=== PATIENT | female | born 1970 | race Caucasian/White ===

== ENCOUNTER 2022-09-17 09:46 | Emergency (ER) | payer MEDICAID ==
[~2022-09-17] VITALS: Ht 160 cm; Wt 107.5 kg
[2022-09-17 09:49] VITALS: BP_SYST 157
[2022-09-17] MEDS ORDERED: MED4 PO (09:56)
[2022-09-17] MEDS ORDERED: BENZ100C92 PO (09:56)
[2022-09-17 10:10] VITALS: BP_SYST 156
== END 2022-09-17 10:07 | disposition home or self-care (01) ==
LOC: SED 09:46
DX: J45.909 Unspecified asthma, uncomplicated (principal); R05.9 Cough, unspecified; R09.81 Nasal congestion; I10 Essential (primary) hypertension; Z79.899 Other long term (current) drug therapy
CPT/HCPCS: 71045; 99283

== ENCOUNTER 2022-10-16 16:32 | Inpatient (IN) | payer MEDICAID ==
[~2022-10-16] VITALS: Ht 160 cm; Wt 108.0 kg
[~2022-10-16 16:32] MED LIST: BENZ100C92 PO; MED4 PO
[2022-10-16 16:34] VITALS: BP_SYST 128
[2022-10-16 17:53] LABS: BASOPHILS # (AUTO) 0.1 K/uL (0.0-0.2); BASOPHILS % (AUTO) 0.7 % (0.0-2.0); EOSINOPHILS # (AUTO) 0.2 K/uL (0.0-0.4); EOSINOPHILS % (AUTO) 1.7 % (0.0-4.0); HEMATOCRIT 41.1 % (36-48); LYMPHOCYTES # (AUTO) 1.7 K/uL (1.0-5.5); LYMPHOCYTES % (AUTO) 16.5 % (20.5-51.5); MEAN CORPUSCULAR HEMOGLOBIN 31 pg (27-31); MEAN CORPUSCULAR HGB CONC 34 % (32-36); MEAN CORPUSCULAR VOLUME 92 fL (79.0-98.0); MONOCYTES # (AUTO) 0.6 K/uL (0.0-1.0); MONOCYTES % (AUTO) 5.9 % (1.7-9.3); NEUTROPHILS # (AUTO) 7.8 K/uL (1.8-7.7); NEUTROPHILS % (AUTO) 75.2 % (40.0-70.0); PLATELET COUNT (AUTO) 314 K/uL (130-430); RED BLOOD CELL COUNT(AUTO) 4.45 MIL/uL (4.2-6.2); RED CELL DISTRIBUTION WIDTH 13.4 % (9.0-15.0); WHITE BLOOD COUNT (AUTO) 10.4 K/uL (4.8-10.8)
[2022-10-16 18:10] LABS: ALANINE AMINOTRANSFERASE 44 U/L (12-78); ALBUMIN 3.6 g/dL (3.4-4.8); ANION GAP 11 (5-15); ASPARTATE AMINOTRANSFERASE 19 U/L (10-37); CALCIUM 9.1 mg/dL (8.4-11.0); CHLORIDE 100 mmol/L (98-107); CREATININE 0.85 mg/dL (0.55-1.30); GFR AFRICAN AMERICAN 90 mL/min (>90); GLUCOSE 125 mg/dL (70-99); TOTAL BILIRUBIN 0.2 mg/dL (0.0-1.0); UREA NITROGEN, BLOOD 20 mg/dL (8-21)
[2022-10-16] MEDS ORDERED: NITROGLYCERIN 1 INCH (GM) OINT. ONE (18:44)
[2022-10-16] MEDS ORDERED: MORPHINE 4 MG INJ. 4 MG/ML VIAL ONE (18:45)
[2022-10-16] MEDS ORDERED: MORPHINE 4 MG INJ. 4 MG/ML VIAL IVP ONE ×2 (20:15→23:30)
[2022-10-16] MEDS ORDERED: GABAPENTIN (21:28)
[2022-10-16] MEDS ORDERED: TRAM50TA2 PO (21:28)
[2022-10-16] MEDS ORDERED: VENL150C53 PO (21:28)
[2022-10-16] MEDS ORDERED: METF-381 PO (21:28)
[2022-10-16] MEDS ORDERED: ATOR40TA68 PO (21:28)
[2022-10-16] MEDS ORDERED: LOSA1TAB43 PO (21:28)
[2022-10-16] MEDS ORDERED: ANASTROZOLE (21:28)
[2022-10-16] MEDS ORDERED: HYDR-500 PO (21:28)
[2022-10-16] MEDS ORDERED: NITROGLYCERIN 1 INCH (GM) OINT. TP ONE (23:30)
[2022-10-17 02:11] LABS: BILIRUBIN,URINE NEGATIVE (NEGATIVE); BLOOD, URINE NEGATIVE (NEGATIVE); CLARITY/URINE CLEAR (CLEAR); COLOR,URINE YELLOW (YELLOW); GLUCOSE,URINE NEGATIVE (NEGATIVE); KETONES,URINE NEGATIVE (NEGATIVE); LEUKOCYTE ESTERASE ,URINE NEGATIVE (NEGATIVE); NITRITE, URINE NEGATIVE (NEGATIVE); PH,URINE 5.5 (5.0-8.0); PROTEIN URINE NEGATIVE (NEGATIVE); UROBILINOGEN,URINE 0.2 (0.2-1.0)
[2022-10-17] MEDS ORDERED: POTASSIUM CHLORIDE 20 MEQ TAB.PRT.SR PO ONE (02:15)
[2022-10-17] MEDS ORDERED: INSULIN REGULAR, HUMAN 100 UNITS/ML, 3 ML VIAL (humuLIN R) SUBCUT PRN (02:15)
[2022-10-17] MEDS ORDERED: POTASSIUM CHLORIDE 20 MEQ TAB.PRT.SR ONE (02:28)
[2022-10-17] MEDS: MORPHINE 2 MG/ML INJ. SYRINGE IVP PRN ×2 (02:34→07:02)
[2022-10-17 02:48] VITALS: BP_SYST 103
[2022-10-17 07:58] VITALS: BP_SYST 119
[2022-10-17 08:59] LABS: BASOPHILS % (AUTO) 0.6 % (0.0-2.0); EOSINOPHILS # (AUTO) 0.2 K/uL (0.0-0.4); EOSINOPHILS % (AUTO) 3.2 % (0.0-4.0); HEMOGLOBIN 12.5 g/dL (12.0-16.0); LYMPHOCYTES # (AUTO) 1.9 K/uL (1.0-5.5); LYMPHOCYTES % (AUTO) 28.8 % (20.5-51.5); MEAN CORPUSCULAR HEMOGLOBIN 31 pg (27-31); MEAN CORPUSCULAR HGB CONC 34 % (32-36); MEAN CORPUSCULAR VOLUME 92 fL (79.0-98.0); MONOCYTES # (AUTO) 0.4 K/uL (0.0-1.0); MONOCYTES % (AUTO) 6.5 % (1.7-9.3); NEUTROPHILS % (AUTO) 60.9 % (40.0-70.0); PLATELET COUNT (AUTO) 246 K/uL (130-430); RED BLOOD CELL COUNT(AUTO) 4.01 MIL/uL (4.2-6.2); RED CELL DISTRIBUTION WIDTH 13.3 % (9.0-15.0); WHITE BLOOD COUNT (AUTO) 6.6 K/uL (4.8-10.8)
[2022-10-17] MEDS: PANTOPRAZOLE SODIUM 40 MG/VIAL (PROTONIX) IVP SCH ×2 (09:03→21:48)
[2022-10-17 09:06] LABS: CALCIUM 8.6 mg/dL (8.4-11.0); CREATININE 0.83 mg/dL (0.55-1.30)
[2022-10-17 09:13] LABS: TOTAL BILIRUBIN 0.5 mg/dL (0.0-1.0)
[2022-10-17 11:20] VITALS: BP_SYST 111
[2022-10-17] MEDS: KCL 20 mEq in D5/0.45NS 1000mL 1,000 ML IV SCH (11:46)
[2022-10-17] MEDS ORDERED: NALOXONE HCL 0.4 MG/ML AMP (NARCAN) IVP PRN (12:30)
[2022-10-17] MEDS: HYDROmorphone 1 MG/ML INJ. CARTRIDGE IVP PRN ×3 (12:44→22:55)
[2022-10-17] MEDS ORDERED: METOPROLOL SUCCINATE 25 MG TAB.SR.24H (TOPROL XL) PO ONE (13:45)
[2022-10-17 15:00] VITALS: BP_SYST 120
[2022-10-17] MEDS ORDERED: GOLYTELY / COLYTE SOLUTION 4 LITERS PO ONE (18:00)
[2022-10-17 20:12] VITALS: BP_SYST 125
[2022-10-17 20:14] VITALS: BP_SYST 125
[2022-10-17] MEDS ORDERED: ATORVASTATIN 20 MG TABLET PO ONE (22:00)
[2022-10-17] MEDS ORDERED: ANASTROZOLE 1 MG TABLET (ARIMIDEX) PO SCH (22:00)
[2022-10-17] MEDS: TEMAZEPAM 7.5 MG CAPSULE PO PRN (22:54)
[2022-10-18] MEDS ORDERED: ONDANSETRON HCL 4 MG/2 ML VIAL IM PRN (01:00)
[2022-10-18 01:02] VITALS: BP_SYST 142; BP_SYST 93
[2022-10-18 03:58] LABS: BASOPHILS % (AUTO) 0.5 % (0.0-2.0); EOSINOPHILS # (AUTO) 0.1 K/uL (0.0-0.4); EOSINOPHILS % (AUTO) 2.3 % (0.0-4.0); HEMATOCRIT 37.5 % (36-48); HEMOGLOBIN 12.7 g/dL (12.0-16.0); LYMPHOCYTES # (AUTO) 1.8 K/uL (1.0-5.5); LYMPHOCYTES % (AUTO) 27.1 % (20.5-51.5); MEAN CORPUSCULAR HEMOGLOBIN 31 pg (27-31); MEAN CORPUSCULAR HGB CONC 34 % (32-36); MEAN CORPUSCULAR VOLUME 92 fL (79.0-98.0); MONOCYTES # (AUTO) 0.4 K/uL (0.0-1.0); MONOCYTES % (AUTO) 6.5 % (1.7-9.3); NEUTROPHILS # (AUTO) 4.2 K/uL (1.8-7.7); NEUTROPHILS % (AUTO) 63.6 % (40.0-70.0); PLATELET COUNT (AUTO) 249 K/uL (130-430); RED BLOOD CELL COUNT(AUTO) 4.08 MIL/uL (4.2-6.2); RED CELL DISTRIBUTION WIDTH 13.4 % (9.0-15.0); WHITE BLOOD COUNT (AUTO) 6.6 K/uL (4.8-10.8)
[2022-10-18 04:13] LABS: INR 1.1 (0.8-1.2); PROTHROMBIN TIME 11.1 SECS (9.5-12.5)
[2022-10-18 04:19] LABS: ALBUMIN 2.9 g/dL (3.4-4.8); CALCIUM 8.2 mg/dL (8.4-11.0); CREATININE 0.6 mg/dL (0.55-1.30); TOTAL BILIRUBIN 0.5 mg/dL (0.0-1.0)
[2022-10-18] MEDS: KCL 20 mEq in D5/0.45NS 1000mL 1,000 ML IV SCH ×2 (05:23→22:25)
[2022-10-18] MEDS ORDERED: MEPERIDINE 50 MG/ML VIAL ONE (07:50)
[2022-10-18] MEDS ORDERED: MIDAZOLAM HCL 5 MG/5 ML VIAL ONE (07:51)
[2022-10-18] MEDS ORDERED: DIPHENHYDRAMINE INJ 50 MG/ML VIAL ONE (08:22)
[2022-10-18 09:30] VITALS: BP_SYST 140
[2022-10-18] MEDS: ATORVASTATIN 20 MG TABLET PO SCH (09:45)
[2022-10-18] MEDS: PANTOPRAZOLE SODIUM 40 MG/VIAL (PROTONIX) IVP SCH ×2 (09:45→20:47)
[2022-10-18] MEDS: METOPROLOL SUCCINATE 25 MG TAB.SR.24H (TOPROL XL) PO SCH (09:47)
[2022-10-18] MEDS: HYDROmorphone 1 MG/ML INJ. CARTRIDGE IVP PRN ×3 (09:48→20:47)
[2022-10-18] MEDS ORDERED: REGADENOSON 0.4 MG/5 ML SYRINGE IVP ONE (10:00)
[2022-10-18 11:39] VITALS: BP_SYST 135
[2022-10-18] MEDS ORDERED: LIDOCAINE TOPICAL OINT 5%, 35 GM TP PRN (13:45)
[2022-10-18] MEDS ORDERED: METOPROLOL SUCCINATE 25 MG TAB.SR.24H (TOPROL XL) PO SCH (14:00)
[2022-10-18 16:00] VITALS: BP_SYST 138
[2022-10-18] MEDS ORDERED: ANASTROZOLE 1 MG TABLET (ARIMIDEX) PO SCH ×2 (21:42→22:00)
[2022-10-18] MEDS: TEMAZEPAM 7.5 MG CAPSULE PO PRN (21:58)
[2022-10-19] MEDS: HYDROmorphone 1 MG/ML INJ. CARTRIDGE IVP PRN ×3 (01:48→13:43)
[2022-10-19 05:07] VITALS: BP_SYST 120
[2022-10-19 08:50] VITALS: BP_SYST 130
[2022-10-19] MEDS: PANTOPRAZOLE SODIUM 40 MG/VIAL (PROTONIX) IVP SCH (09:02)
[2022-10-19] MEDS: METOPROLOL SUCCINATE 25 MG TAB.SR.24H (TOPROL XL) PO SCH (09:03)
[2022-10-19] MEDS: ATORVASTATIN 20 MG TABLET PO SCH (09:03)
[2022-10-19 12:00] VITALS: BP_SYST 115
[2022-10-19] MEDS: KCL 20 mEq in D5/0.45NS 1000mL 1,000 ML IV SCH (13:47)
[2022-10-19 15:00] VITALS: BP_SYST 127
[2022-10-19] MEDS ORDERED: PRO40 PO (15:19)
[2022-10-19 15:45] VITALS: BP_SYST 127
[2022-10-24] MEDS ORDERED: ONDA-8 TL (05:31)
[2022-10-24] MEDS ORDERED: FAMO40OR4 PO (05:31)
[2022-10-24] MEDS ORDERED: ANAS1TAB51 PO (05:31)
[2022-10-24] MEDS ORDERED: METF-379 PO (05:31)
[2022-10-25] MEDS ORDERED: LEVO250T73 PO (11:51)
[2022-10-25] MEDS ORDERED: METR-343 PO (11:51)
== END 2022-10-19 16:29 | disposition home or self-care (01) | DRG 254 ==
LOC: SED 16:32 → STU 23:06
PROVIDERS: ADMIT Internal Medicine; ATTEND Internal Medicine
PROC: 0DB58ZX Excision of Esophagus, Via Natural or Artificial Opening Endoscopic, Diagnostic (ICD-10-PCS; 2022-10-18)
PROC: 0DBM8ZZ Excision of Descending Colon, Via Natural or Artificial Opening Endoscopic (ICD-10-PCS; 2022-10-18)
PROC: 0DB98ZX Excision of Duodenum, Via Natural or Artificial Opening Endoscopic, Diagnostic (ICD-10-PCS; principal; 2022-10-18 08:00)
PROC: 0DB78ZX Excision of Stomach, Pylorus, Via Natural or Artificial Opening Endoscopic, Diagnostic (ICD-10-PCS; 2022-10-18 08:00)
DX: K92.1 Melena (principal); C50.912 Malignant neoplasm of unspecified site of left female breast; K21.00 Gastro-esophageal reflux disease with esophagitis, without bleeding; E11.9 Type 2 diabetes mellitus without complications; K29.70 Gastritis, unspecified, without bleeding; K44.9 Diaphragmatic hernia without obstruction or gangrene; K63.5 Polyp of colon; K64.8 Other hemorrhoids; E66.01 Morbid (severe) obesity due to excess calories; E78.5 Hyperlipidemia, unspecified; I10 Essential (primary) hypertension; Z79.810 Long term (current) use of selective estrogen receptor modulators (SERMs); Z20.822 Contact with and (suspected) exposure to COVID-19; Z88.0 Allergy status to penicillin; Z79.899 Other long term (current) drug therapy; Z68.41 Body mass index [BMI] 40.0-44.9, adult
CPT/HCPCS: 36415; 43239; 45385; 71045; 76376; 80053; 81003; 83690; 83735; 83880; 84484; 85025; 85610-TC; 85730-TC; 87081; 88305; 88312; 88313; 93005; 93306; 99285; C9113; G0378; J1170; J1200; J2175; J2250; J2270; J2405; J2785